=== PATIENT | female | born 1955 | race Caucasian/White ===

== ENCOUNTER 2017-05-18 21:55 | Observation (INO) | payer BC ==
[~2017-05-18] VITALS: Ht 172.7 cm; Wt 109.1 kg
[~2017-05-18 21:55] MED LIST: SYNT137T PO
[2017-05-18 21:59] VITALS: BP 161/112; PULSE 88; RESP 18; TEMP 97.3; O2SAT 98
[2017-05-18] MEDS ORDERED: ZANT150T2 PO (22:01)
[2017-05-18] MEDS ORDERED: ALLO100T PO (22:01)
[2017-05-18] MEDS ORDERED: ROCA0.5C PO (22:01)
[2017-05-18] MEDS ORDERED: METO25TA3 PO (22:01)
[2017-05-18] MEDS ORDERED: BETH10TA2 PO (22:01)
[2017-05-18] MEDS ORDERED: AMLO5 PO (22:01)
[2017-05-18] MEDS ORDERED: CYAN1TAB24 (22:01)
[2017-05-18] MEDS ORDERED: SYNT175T PO (22:01)
--- NOTE | 2017-05-18 22:11 | PD ---
HPI Chief Complaint: Chest Pain Time Seen by Provider: 21:59 Travel History International Travel<30 days: No Contact w/Intl Traveler<30days: No Traveled to known affect area: No History of Present Illness HPI 61-year-old female with history of hypertension, here for evaluation of chest pain. Patient reports that she has been having elevated blood pressure for the last month and was seen by emergency veterinary assistant Dr. Alvarado 3 days ago and was started on a new blood pressure medication. About 45 minutes prior to arrival while sitting the patient began experiencing severe chest discomfort. She described the discomfort as pressure, severe, has since lessened and is now a 6 out of 10 , is substernal and radiates to her left chest. She became slightly short of breath and diaphoretic at onset of symptoms. She denies any known history of cardiac disease. Both her mother and her father had history of cardiac disease with her father dying at the age of 49 of an VT. She is a nonsmoker. No paresthesias or motor deficits. No history of DVT or PE. No fevers or recent illness. PFSH Past Medical History ?: Not Social History Tobacco Use: No Allergies-Medications (Allergen,Severity, Reaction): Coded Allergies: NSAIDS (Non-Steroidal Anti-Inflamma (Verified Allergy, Severe, 05/18/17) Sulfa (Sulfonamide Antibiotics) (Unverified Allergy, Severe, Anaphylaxis, 05/18/17) shellfish derived (Verified Allergy, Severe, 05/18/17) Reported Meds & Prescriptions Reported Meds & Active Scripts Active Reported B12 (Cyanocobalamin) 1,000 Mcg Tab Rocaltrol (Calcitriol) 0.5 Mcg Cap 0.5 Mcg PO DAILY Zantac (Ranitidine HCl) 150 Mg Tab 150 Mg PO BID Bethanechol 10 Mg Tab 10 Mg PO Q8HR Norvasc (Amlodipine Besylate) 5 Mg Tab 5 Mg PO DAILY Allopurinol 100 Mg Tab 100 Mg PO DAILY Metoprolol Tartrate 25 Mg Tab 25 Mg PO BID Synthroid (Levothyroxine Sodium) 175 Mcg Tab 175 Mcg PO DAILY Review of Systems Except as stated in HPI: all other systems reviewed are Neg Physical Exam Narrative GENERAL: Well-developed, well-nourished, no apparent distress. SKIN: Focused skin assessment warm/dry. No rash. No pallor. HEAD: Atraumatic. Normocephalic. EYES: Pupils equal and round. No scleral icterus. No injection or drainage. ENT: No nasal bleeding or discharge. Mucous membranes pink and moist. NECK: Trachea midline. No JVD. CARDIOVASCULAR: Regular rate and rhythm. Distal pulses brisk and equal bilaterally. RESPIRATORY: No accessory muscle use. Clear to auscultation. Breath sounds equal bilaterally. GASTROINTESTINAL: Abdomen soft, non-tender, nondistended. MUSCULOSKELETAL: No obvious deformities. No clubbing. No cyanosis. No edema. NEUROLOGICAL: Awake and alert. No obvious cranial nerve deficits. Motor grossly within normal limits. Normal speech. PSYCHIATRIC: Appropriate mood and affect; insight and judgment normal. Data Data Last Documented VS Vital Signs Date Time Temp Pulse Resp B/P (MAP) Pulse Ox O2 Delivery O2 Flow Rate FiO2 05/18/17 22:43 18 05/18/17 22:31 93 140/87 (104) 131/81 (98) 05/18/17 22:28 97 Room Air 05/18/17 21:59 97.3 Orders Orders Electrocardiogram (05/18/17 22:03) Ckmb (Isoenzyme) Profile (05/18/17 22:03) Complete Blood Count With Diff (05/18/17 22:03) Comprehensive Metabolic Panel (05/18/17 22:03) Magnesium (Mg) (05/18/17 22:03) Prothrombin Time / Inr (Pt) (05/18/17 22:03) Act Partial Throm Time (Ptt) (05/18/17 22:03) Troponin I (05/18/17 22:03) Chest, Single Ap (05/18/17 22:03) Ecg Monitoring (05/18/17 22:03) Bilateral Bp Monitoring (05/18/17 22:03) Iv Access Insert/Monitor (05/18/17 22:03) Oximetry (05/18/17 22:03) Oxygen Administration (05/18/17 22:03) Aspirin Chew (Aspirin Chew) (05/18/17 22:15) Sodium Chloride 0.9% Flush (Ns Flush) (05/18/17 22:15) Nitroglycerin Sl (Nitrostat Sl) (05/18/17 22:15) Sodium Chlor 0.9% 1000 Ml Inj (Ns 1000 M (05/18/17 23:00) Admit Order (Ed Use Only) (05/18/17 23:33) Labs Laboratory Tests Test 05/18/17 22:11 White Blood Count 7.6 TH/MM3 Red Blood Count 4.20 MIL/MM3 Hemoglobin 12.4 GM/DL Hematocrit 37.6 % Mean Corpuscular Volume 89.6 FL Mean Corpuscular Hemoglobin 29.5 PG Mean Corpuscular Hemoglobin Concent 32.9 % Red Cell Distribution Width 12.8 % Platelet Count 208 TH/MM3 Mean Platelet Volume 9.6 FL Neutrophils (%) (Auto) 61.5 % Lymphocytes (%) (Auto) 28.5 % Monocytes (%) (Auto) 7.0 % Eosinophils (%) (Auto) 2.3 % Basophils (%) (Auto) 0.7 % Neutrophils # (Auto) 4.6 TH/MM3 Lymphocytes # (Auto) 2.2 TH/MM3 Monocytes # (Auto) 0.5 TH/MM3 Eosinophils # (Auto) 0.2 TH/MM3 Basophils # (Auto) 0.1 TH/MM3 CBC Comment DIFF FINAL Differential Comment Prothrombin Time 10.7 SEC Prothromb Time International Ratio 1.0 RATIO Activated Partial Thromboplast Time 25.0 SEC Blood Urea Nitrogen 38 MG/DL Creatinine 1.60 MG/DL Random Glucose 126 MG/DL Total Protein 7.9 GM/DL Albumin 3.7 GM/DL Calcium Level 11.5 MG/DL Magnesium Level 2.4 MG/DL Alkaline Phosphatase 99 U/L Aspartate Amino Transf (AST/SGOT) 18 U/L Alanine Aminotransferase (ALT/SGPT) 28 U/L Total Bilirubin 0.3 MG/DL Sodium Level 134 MEQ/L Potassium Level 3.8 MEQ/L Chloride Level 100 MEQ/L Carbon Dioxide Level 26.5 MEQ/L Anion Gap 8 MEQ/L Estimat Glomerular Filtration Rate 33 ML/MIN Total Creatine Kinase 91 U/L Troponin I LESS THAN 0.02 NG/ML MDM Medical Decision Making Medical Screen Exam Complete: Yes Emergency Medical Condition: Yes Interpretation(s) EKG: Sinus, rate 85, leftward axis, normal intervals, LVH, low QRS voltages in precordial leads, no acute ischemic abnormality. Differential Diagnosis ACS, pneumothorax, pericarditis, PE, pneumonia, hypertensive crisis Narrative Course Initial vital signs show heart rate 88, blood pressure 161/112, pulse ox 98% on room air, oral temp 97.3F. Blood pressure improved to 140/87 after 3 sublingual nitroglycerin. CBC is unremarkable. CMP is remarkable for BUN 38, creatinine 1.6, GFR 33, calcium 11.5. Chest x-ray: FINDINGS: Mild nodular prominence of the right hilum. Lungs are otherwise symmetric and unremarkable. No evidence of effusion. Heart size is satisfactory for technique and projection. Patient was given a full aspirin and 3 sublingual nitroglycerin. On reassessment she reports that her pain has resolved. She was made aware of all findings. She reports history of slight renal insufficiency as well as parathyroidectomy and is on calcitriol. She will be admitted for further chest pain workup. She is amenable to this plan. Case discussed with hospitalist Dr. Younger who will admit the patient to her service. Diagnosis Primary Impression: Chest pain Qualified Codes: R07.9 - Chest pain, unspecified Additional Impressions: Hypercalcemia Pulmonary nodule Renal insufficiency Admitting Information Admitting Physician Requests: Observation Troy Ribeiro MD May 18, 2017 22:11
[2017-05-18] MEDS ORDERED: SODIUM CHLORIDE 0.9% FLUSH 10 ML FLUSH IVF PRN (22:15)
[2017-05-18] MEDS ORDERED: ASPIRIN 81 MG CHEW TAB PO ONE (22:15)
[2017-05-18] MEDS: NITROGLYCERIN 0.4 MG SL 25 TABS/BTL SL SCH ×3 (22:16→22:38)
[2017-05-18 22:18] VITALS: O2SAT 97
[2017-05-18 22:19] LABS: AUTOMATED NEUTROPHIL # 4.6 TH/MM3 (1.8-7.7); BASOPHIL # 0.1 TH/MM3 (0-0.2); BASOPHIL % 0.7 % (0.0-2.0); EOSINOPHIL # 0.2 TH/MM3 (0-0.4); EOSINOPHIL % 2.3 % (0.0-4.0); HEMATOCRIT 37.6 % (35.0-46.0); HEMO FLAGS DIFF FINAL; LYMPH % 28.5 % (9.0-44.0); LYMPHOCYTE # 2.2 TH/MM3 (1.0-4.8); MEAN CELL VOLUME 89.6 FL (80.0-100.0); MEAN CORPUSCULAR HEMOGLOBIN 29.5 PG (27.0-34.0); MEAN CORPUSCULAR HGB CONC 32.9 % (32.0-36.0); NEUT % 61.5 % (16.0-70.0); PLATELET COUNT 208 TH/MM3 (150-450); RED CELL DISTRIBUTION WIDTH 12.8 % (11.6-17.2); WHITE BLOOD COUNT 7.6 TH/MM3 (4.0-11.0)
[2017-05-18 22:28] VITALS: BP 140/87; PULSE 93; RESP 18; O2SAT 97
[2017-05-18 22:31] VITALS: BP_SYST 131; BP_SYST 140; BP_DIAS 81; BP_DIAS 87; PULSE 93
[2017-05-18 22:33] LABS: CHLORIDE 100 MEQ/L (98-107); POTASSIUM 3.8 MEQ/L (3.5-5.1); SODIUM (NA) 134 MEQ/L (136-145)
[2017-05-18 22:36] LABS: ANION GAP 8 MEQ/L (5-15); BICARBONATE 26.5 MEQ/L (21.0-32.0); MAGNESIUM 2.4 MG/DL (1.5-2.5)
[2017-05-18 22:37] LABS: BLOOD UREA NITROGEN 38 MG/DL (7-18)
--- NOTE | 2017-05-18 22:38 | RADRPT ---
EXAM DATE/TIME: 05/18/2017 22:13 [facility] COMPARISON: No previous studies available for comparison. INDICATIONS : Chest pain. MEDICAL HISTORY : Hypertension. SURGICAL HISTORY : None. ENCOUNTER: Initial ACUITY: 1 day PAIN SCORE: 6/10 LOCATION: chest substernal. FINDINGS: Mild nodular prominence of the right hilum. Lungs are otherwise symmetric and unremarkable. No eviden ce of effusion. Heart size is satisfactory for technique and projection. CONCLUSION: Abnormal chest appearance. Adrian Monsalve MD on May 18, 2017 at 22:36 Board Certified Radiologist. This report was verified electronically.
[2017-05-18 22:39] LABS: ALT (GPT) 28 U/L (10-53)
[2017-05-18 22:40] LABS: AST (GOT) 18 U/L (15-37); GLOMERULAR FILTRATION RATE 33 ML/MIN (>89); PROTHROMBIN TIME - PATIENT 10.7 SEC (9.8-11.6)
[2017-05-18 22:41] LABS: TOTAL BILIRUBIN ADULT 0.3 MG/DL (0.2-1.0)
[2017-05-18 22:42] LABS: ALKALINE PHOSPHATASE 99 U/L (45-117)
[2017-05-18 22:50] LABS: CREATINE KINASE 91 U/L (26-192)
[2017-05-18] MEDS ORDERED: SODIUM CHLOR 0.9% 1000 ML INJ 1,000 ML IV ONE (23:00)
[2017-05-18] MEDS ORDERED: NALOXONE HCL 0.4 MG/ML AMP IV PUSH PRN (23:45)
[2017-05-18] MEDS ORDERED: SODIUM CHLORIDE 0.9% FLUSH 10 ML FLUSH IV FLUSH PRN (23:45)
[2017-05-19 00:29] VITALS: BP 147/74
[2017-05-19 01:00] VITALS: BP 161/83; PULSE 73; RESP 20; TEMP 96; O2SAT 94
[2017-05-19] MEDS ORDERED: ACETAMINOPHEN 325 MG TAB PO PRN (01:15)
[2017-05-19 04:37] LABS: BASOPHIL % 0.4 % (0.0-2.0); EOSINOPHIL # 0.2 TH/MM3 (0-0.4); EOSINOPHIL % 2.4 % (0.0-4.0); HEMATOCRIT 34.2 % (35.0-46.0); HEMO FLAGS DIFF FINAL; LYMPHOCYTE # 1.9 TH/MM3 (1.0-4.8); MEAN CELL VOLUME 89.3 FL (80.0-100.0); MEAN CORPUSCULAR HEMOGLOBIN 30.5 PG (27.0-34.0); MEAN CORPUSCULAR HGB CONC 34.2 % (32.0-36.0); NEUT % 60.2 % (16.0-70.0); PLATELET COUNT 165 TH/MM3 (150-450); RED BLOOD COUNT 3.83 MIL/MM3 (4.00-5.30); RED CELL DISTRIBUTION WIDTH 12.6 % (11.6-17.2); WHITE BLOOD COUNT 6.6 TH/MM3 (4.0-11.0)
[2017-05-19 04:43] LABS: CHLORIDE 105 MEQ/L (98-107); SODIUM (NA) 138 MEQ/L (136-145)
[2017-05-19 05:09] LABS: ANION GAP 6 MEQ/L (5-15); BICARBONATE 26.9 MEQ/L (21.0-32.0); BLOOD UREA NITROGEN 35 MG/DL (7-18); GLOMERULAR FILTRATION RATE 35 ML/MIN (>89)
[2017-05-19 06:00] LABS: CREATINE KINASE 77 U/L (26-192)
[2017-05-19 08:00] VITALS: BP 135/62; PULSE 64; PULSE 72; RESP 17; TEMP 97.5; O2SAT 99
[2017-05-19] MEDS ORDERED: SODIUM CHLORIDE 0.9% FLUSH 10 ML FLUSH IV FLUSH SCH (09:00)
[2017-05-19] MEDS ORDERED: ASPIRIN EC 81 MG TABEC PO SCH (09:15)
[2017-05-19] MEDS ORDERED: DILTIAZEM-CD 240 MG CAP ER PO SCH (10:29)
[2017-05-19] MEDS ORDERED: CARVEDILOL 12.5 MG TAB PO SCH (10:29)
[2017-05-19] MEDS ORDERED: ACETAMINOPHEN/HYDROcodone 325 MG/5 MG TAB PO PRN (10:30)
[2017-05-19 10:44] LABS: CREATINE KINASE 72 U/L (26-192)
--- NOTE | 2017-05-19 11:50 | ECHRPT ---
Indication: Chest Pain CONCLUSIONS There is trace tricuspid valve regurgitation. The estimated pulmonary arterial pressure is 30 mmHg. The pulmonary valve is not well visualized. BP: 135 / 62 HR: 86 Rhythm: Sinus MEASUREMENTS (Male / Female) Normal Values Technical Quality:Fair 2D ECHO LV Diastolic Diameter PLAX 3.9 cm 4.2 - 5.9 / 3.9 - 5.3 cm LV Systolic Diameter PLAX 2.6 cm IVS Diastolic Thickness 1.0 cm 0.6 - 1.0 / 0.6 - 0.9 cm LVPW Diastolic Thickness 1.0 cm 0.6 - 1.0 / 0.6 - 0.9 cm LV Relative Wall Thickness 0.5 RV Internal Dim ED PLAX 2.6 cm LVOT Diameter 2.2 cm LA Systolic Diameter LX 4.0 cm 3.0 - 4.0 / 2.7 - 3.8 cm M-MODE Aortic Root Diameter MM 3.0 cm LA Systolic Diameter MM 3.3 cm LA Ao Ratio MM 1.1 AV Cusp Separation MM 1.9 cm DOPPLER AV Peak Velocity 115.0 cm/s AV Peak Gradient 5.3 mmHg LVOT Peak Velocity 82.9 cm/s LVOT Peak Gradient 2.7 mmHg AV Area Cont Eq pk 2.7 cm MV Area PHT 4.8 cm Mitral E Point Velocity 49.4 cm/s Mitral A Point Velocity 72.6 cm/s Mitral E to A Ratio 0.7 TR Peak Velocity 223.0 cm/s TR Peak Gradient 19.9 mmHg Right Atrial Pressure 10.0 mmHg Pulmonary Artery Systolic Pressu 29.9 mmHg Right Ventricular Systolic Press 29.9 mmHg PV Peak Velocity 89.6 cm/s PV Peak Gradient 3.2 mmHg FINDINGS LEFT VENTRICLE Normal left ventricular size and wall thickness. The left ventricular systolic function is normal wi th an estimated ejection fraction in the range of 60-65%. Left ventricular diastolic function parameters a re normal. RIGHT VENTRICLE Normal right ventricular size and systolic function. LEFT ATRIUM The left atrial size is normal. RIGHT ATRIUM The right atrial size is normal. ATRIAL SEPTUM Normal atrial septal thickness without atrial level shunting by limited color doppler interrogation. AORTA The aortic root and proximal ascending aorta are normal in size on limited imaging. MITRAL VALVE Structurally normal mitral valve. No mitral valve stenosis or regurgitation. AORTIC VALVE Trileaflet aortic valve. No aortic valve stenosis or regurgitation. TRICUSPID VALVE Structurally normal tricuspid valve. There is trace tricuspid valve regurgitation. The estimated pulmonary arterial pressure is 30 mmHg. PULMONARY VALVE The pulmonary valve is not well visualized. VESSELS The inferior vena cava is normal in size. PERICARDIUM No pericardial effusion. John Nelson MD, FACC, [facility] [place] (Electronically Signed) Final Date:19 May 2017 11:48
[2017-05-19 12:00] VITALS: BP 132/75; PULSE 69; RESP 19; TEMP 98; O2SAT 98
--- NOTE | 2017-05-19 12:04 | HHI.HP ---
[facility] Primary Care Physician Yolanda Naik M.D. Admission Diagnosis chest pain, hypercalcemia, pulmonary nodule Diagnoses: (1) Chest pain Diagnosis: Principal (2) Accelerated hypertension Diagnosis: Principal (3) Chronic kidney disease, stage 3 Diagnosis: Secondary Chief Complaint: Chest pain Travel History International Travel<30 Days: No Contact w/Intl Traveler <30 Da: No Traveled to Known Affected Are: No History of Present Illness Written by Michael Arthur, acting as scribe for Dr. Rai on 05/19/17 at 11:51. 7-year-old female with known history of hypertension, hypothyroidism, chronic kidney disease stage III, gastroesophageal reflux, gout who presented to hospital because of chest discomfort. Patient states that she usually goes to Dr. Naik on a regular basis. Patient blood pressure had been running high so she was referred back to Dr. Alvarado for recommendations. Patient was under care of Dr. Alvarado in and her blood pressure medications were being adjusted. She had been changed to metoprolol, amlodipine. However blood pressures were running in the high 130s/90s. Patient doing well until yesterday when she was having some significant lightheadedness and dizziness so she checked her blood pressure and her diastolic pressure was greater than 100. She took her dose of amlodipine without any improvement. Then she started developing severe viselike chest pain 8/10 on a pain scale at approximately 9 PM last night. She took some aspirin without any improvement. She indicates the pain did not go into her neck or shoulders. The pain did go under her left breast. She had some nausea without vomiting. She had associated diaphoresis. Shortness of breath. The patient came to emergency department for evaluation and was given nitroglycerin with complete resolution of her pain. Patient had workup done without any significant abnormalities. It was recommended that the patient be observed for further evaluation and management for her chest discomfort. Review of Systems Respiratory: COMPLAINS OF: Shortness of breath Cardiovascular: COMPLAINS OF: Chest pain, Lower Extremity Edema (patient has chronic intermittent left lower extremity edema secondary to saphenous vein surgery) Except as stated in HPI: all other systems reviewed are Neg Past Family Social History Past Medical History Hypertension Gastroesophageal reflux Gout Hypothyroidism Past Surgical History Cholecystectomy Thyroidectomy Parathyroidectomy Partial hysterectomy Reported Medications Reported Meds & Active Scripts Active Reported B12 (Cyanocobalamin) 1,000 Mcg Tab Rocaltrol (Calcitriol) 0.5 Mcg Cap 0.5 Mcg PO DAILY Zantac (Ranitidine HCl) 150 Mg Tab 150 Mg PO BID Bethanechol 10 Mg Tab 10 Mg PO Q8HR Norvasc (Amlodipine Besylate) 5 Mg Tab 5 Mg PO DAILY Allopurinol 100 Mg Tab 100 Mg PO DAILY Metoprolol Tartrate 25 Mg Tab 25 Mg PO BID Synthroid (Levothyroxine Sodium) 175 Mcg Tab 175 Mcg PO DAILY Allergies: Coded Allergies: NSAIDS (Non-Steroidal Anti-Inflamma (Verified Allergy, Severe, 05/18/17) Sulfa (Sulfonamide Antibiotics) (Unverified Allergy, Severe, Anaphylaxis, 05/18/17) shellfish derived (Verified Allergy, Severe, 05/18/17) Family History Reviewed and significant for father at age 49 from early onset heart disease. Social History Patient states that she smoked for a couple years when she was a teenager, she denies any alcohol or illicit drugs Physical Exam Vital Signs Vital Signs Date Time Temp Pulse Resp B/P (MAP) Pulse Ox O2 Delivery O2 Flow Rate FiO2 05/19/17 08:00 97.5 72 17 135/62 (86) 99 05/19/17 08:00 64 05/19/17 02:16 20 05/19/17 01:00 96.0 73 20 161/83 (109) 94 05/19/17 00:29 76 18 147/74 (98) 98 05/18/17 22:43 18 05/18/17 22:31 93 140/87 (104) 131/81 (98) 05/18/17 22:28 93 18 140/87 (104) 97 Room Air 05/18/17 22:18 97 Room Air 05/18/17 22:18 97 Room Air 05/18/17 22:04 88 18 98 Room Air 05/18/17 21:59 97.3 88 18 161/112 (128) 98 Physical Exam GENERAL: Well-developed, well-nourished, in no acute distress. alert and orientated HEENT: Head is normocephalic without any lesions or masses noted. Facial features are symmetric. Eyes: Pupils equal round reactive to light. Extraocular muscles are intact. Conjunctivae were clear. Oropharyngeal: Pharynx without any erythema edema. Tongue is midline without deviation. Buccal mucosa is moist without any masses or lesions NECK: Supple without any masses. Trachea midline no deviation. No JVD, no bruits are appreciated CARDIAC: Regular rhythm, regular rate. S1/S2 are heard. No murmurs gallops or rubs. LUNGS: Clear to auscultation bilaterally. No wheeze, rhonchi or rales. No use of accessory muscles on inspiration or expiration. ABDOMEN: Soft, nontender. Nondistended. Bowel sounds heard in all 4 quadrants. No organomegaly or masses. Negative rebound, negative guarding EXTREMITIES: No edema, pulses are equal bilaterally. No cyanosis or clubbing NEUROLOGY: Mood and affect appear appropriate. Cranial nerves II through XII grossly intact. Muscle strength 5/5 in upper and lower extremities bilaterally. Deep tendon reflexes are 2+ in upper and lower extremities bilaterally. Laboratory Laboratory Tests Test 05/18/17 22:11 05/19/17 04:25 05/19/17 09:40 White Blood Count 7.6 6.6 Red Blood Count 4.20 3.83 Hemoglobin 12.4 11.7 Hematocrit 37.6 34.2 Mean Corpuscular Volume 89.6 89.3 Mean Corpuscular Hemoglobin 29.5 30.5 Mean Corpuscular Hemoglobin Concent 32.9 34.2 Red Cell Distribution Width 12.8 12.6 Platelet Count 208 165 Mean Platelet Volume 9.6 9.4 Neutrophils (%) (Auto) 61.5 60.2 Lymphocytes (%) (Auto) 28.5 29.0 Monocytes (%) (Auto) 7.0 8.0 Eosinophils (%) (Auto) 2.3 2.4 Basophils (%) (Auto) 0.7 0.4 Neutrophils # (Auto) 4.6 4.0 Lymphocytes # (Auto) 2.2 1.9 Monocytes # (Auto) 0.5 0.5 Eosinophils # (Auto) 0.2 0.2 Basophils # (Auto) 0.1 0.0 CBC Comment DIFF FINAL DIFF FINAL Differential Comment Prothrombin Time 10.7 Prothromb Time International Ratio 1.0 Activated Partial Thromboplast Time 25.0 Blood Urea Nitrogen 38 35 Creatinine 1.60 1.50 Random Glucose 126 98 Total Protein 7.9 Albumin 3.7 Calcium Level 11.5 10.2 Magnesium Level 2.4 Alkaline Phosphatase 99 Aspartate Amino Transf (AST/SGOT) 18 Alanine Aminotransferase (ALT/SGPT) 28 Total Bilirubin 0.3 Sodium Level 134 138 Potassium Level 3.8 4.0 Chloride Level 100 105 Carbon Dioxide Level 26.5 26.9 Anion Gap 8 6 Estimat Glomerular Filtration Rate 33 35 Total Creatine Kinase 91 77 72 Troponin I LESS THAN 0.02 LESS THAN 0.02 LESS THAN 0.02 D-Dimer Quantitative (PE/DVT) 0.26 Result Diagram: 05/19/1742405/19/17424 Imaging Last Impressions Chest X-Ray 05/18/172202 Signed Impressions: Service Date/Time: Thursday, May 18, 2017 22:13 - CONCLUSION: Abnormal chest appearance. MD Jo Ferrer VTE Risk Assessment Jo VTE Risk Assessment: No/Low Risk (score <= 1) Caprini Risk Assessment Model Point Value = 1 Point Value = 2 Point Value = 3 Point Value = 5 Age 41-60 Minor surgery BMI > 25 kg/m2 Swollen legs Varicose veins or History of unexplained or recurrent spontaneous Oral contraceptives or hormone replacement Sepsis (< 1 month) Serious lung disease, including pneumonia (< 1 month) Abnormal pulmonary function Acute myocardial infarction Congestive heart failure (< 1 month) History of inflammatory bowel disease Medical patient at bed rest Age 61-74 Arthroscopic surgery Major open surgery (> 45 min) Laparoscopic surgery (> 45 min) Malignancy Confined to bed (> 72 hours) Immobilizing plaster cast Central venous access Age >= 75 History of VTE Family history of VTE Factor V Leiden Prothrombin [id number] Lupus anticoagulant Anticardiolipin antibodies Elevated serum homocysteine Heparin-induced thrombocytopenia Other congenital or acquired thrombophilia Stroke (< 1 month) Elective arthroplasty Hip, pelvis, or leg fracture Acute spinal cord injury (< 1 month) Prophylaxis Regimen Total Risk Factor Score Risk Level Prophylaxis Regimen 0-1 Low Early ambulation 2 Moderate Order ONE of the following: *Sequential Compression Device (SCD) *Heparin 5000 units SQ BID 3-4 Higher Order ONE of the following medications: *Heparin 5000 units SQ TID *Enoxaparin/Lovenox 40 mg SQ daily (WT < 150 kg, CrCl > 30 mL/min) *Enoxaparin/Lovenox 30 mg SQ daily (WT < 150 kg, CrCl > 10-29 mL/min) *Enoxaparin/Lovenox 30 mg SQ BID (WT < 150 kg, CrCl > 30 mL/min) AND/OR *Sequential Compression Device (SCD) 5 or more Highest Order ONE of the following medications: *Heparin 5000 units SQ TID (Preferred with Epidurals) *Enoxaparin/Lovenox 40 mg SQ daily (WT < 150 kg, CrCl > 30 mL/min) *Enoxaparin/Lovenox 30 mg SQ daily (WT < 150 kg, CrCl > 10-29 mL/min) *Enoxaparin/Lovenox 30 mg SQ BID (WT < 150 kg, CrCl > 30 mL/min) AND *Sequential Compression Device (SCD) Assessment and Plan Assessment and Plan Chest pain Patient has have increased risk factors to include age, hypertension, early- onset family history of heart disease Patient has been ruled out for acute coronary event with serial cardiac enzymes which are normal, serial EKGs do not show any changes Patient was continued on aspirin, Dr. Alvarado, has seen the patient and recommended further workup to rule out ischemia, pulmonary emboli D-dimer is negative Echocardiogram has been requested Pursue nuclear stress test rule out underlying ischemia Accelerated hypertension Dr. Alvarado has resumed her blood pressure medication to include Coreg 12.5 mg twice daily, Cardizem 240 mg daily Abnormal chest x-ray with mild nodular prominence of right hilum Recommending short term outpatient follow-up with her primary medical doctor Unable to perform CTA of the chest with contrast due to chronic kidney disease Chronic kidney disease stage III Continue monitor renal functions Avoid nephrotoxins DVT prevention Sequential compression devices Discharge disposition Discharge home in stable condition if nuclear stress test is negative Activity: Ad nelia. Diet: Healthy heart diet Medications per medication reconciliation Follow-up primary medical doctor in one week, choral teacher in 2 weeks This note was transcribed by scribe. Howell, Dr. Velma Rai personally performed the history, physical exam, and medical decision making; and confirmed the accuracy of the information in the transcribed note. Authenticated by Dr. Velma Rai on 05/19/17 at 12:05. Problem Qualifiers (1) Chest pain: Qualified Codes: R07.9 - Chest pain, unspecified Michael Arthur May 19, 2017 12:04 Velma Rai MD May 19, 2017 12:05
[2017-05-19] MEDS ORDERED: REGADENOSON INJ 0.4 MG/5 ML SYR IV ONE (13:26)
--- NOTE | 2017-05-19 15:25 | RADRPT ---
EXAM DATE/TIME: 05/19/2017 13:12 [facility] COMPARISON: No previous studies available for comparison. INDICATIONS : Left sided chest pain for one day. Angina. DOSE: 30.0 mCi Tc99m Myoview at stress. 10.0 mCi Tc99m Myoview at rest. 0.4 mg Lexiscan STRESS SYMPTOMS: Shortness of breath. EJECTION FRACTION: 58% MEDICAL HISTORY : Hypertension. SURGICAL HISTORY : Thyroidectomy. Hysterectomy. Cholecystectomy. ENCOUNTER: Initial ACUITY: 1 day PAIN SCALE: 6/10 LOCATION: Left chest TECHNIQUE: The patient underwent pharmacologic stress with infusion of prescribed dose. Continuous ECG tracing was monitored during stress. Gated SPECT imaging was performed after stress and conventional SPECT i maging was performed at rest. The examination was performed on a SPECT/CT scanner, both attenuation and non-corrected datasets were reviewed. FINDINGS: DISTRIBUTION: The maximum perfused segment at stress is in the anterolateral wall. PERFUSION STUDY: The pattern of perfusion at stress is within normal limits, with regional variations of perfusion wit hin 30%. No evidence of redistribution. The summed stress score is 5. GATED STUDY: There is intact wall motion and thickening without hypokinetic or dyskinetic segments. CONCLUSION: 1. No evidence of stress-induced ischemia. 2. Intact wall motion with 58% ejection fraction. RISK CATEGORY: Low (<1% Annual Mortality Rate) Javid Arenas MD on May 19, 2017 at 15:22 Board Certified Radiologist. This report was verified electronically.
[2017-05-19] MEDS ORDERED: CARD240C6 PO (15:38)
[2017-05-19] MEDS ORDERED: CARV12.5 PO (15:38)
--- NOTE | 2017-05-19 15:38 | HHI.DCPOC ---
Discharge Care Plan Diagnosis: (1) Accelerated hypertension (2) Chest pain Goals to Promote Your Health * To prevent worsening of your condition and complications * To maintain your health at the optimal level Directions to Meet Your Goals Take your medications as prescribed Follow your dietary instruction Follow activity as directed Keep your appointments as scheduled Take your immunizations and boosters as scheduled If your symptoms worsen call your PCP, if no PCP go to Urgent Care Center or Emergency Room Smoking is Dangerous to Your Health. Avoid second hand smoke Call the 24-hour hour crisis hotline for domestic abuse at Michael Arthur May 19, 2017 15:38
[2017-05-19 16:00] VITALS: BP 128/72; PULSE 72; RESP 18; TEMP 97.8; O2SAT 97
--- NOTE | 2017-05-19 16:10 | EKG ---
Date Performed: 05/19/2017 Time Performed: 04:07:29 PTAGE: 61 years EKG: Sinus rhythm VOLTAGE CRITERIA FOR LVH ABNORMAL ECG Compared to prior tracing no significant change PREVIOUS TRACING : 05/18/2017 DOCTOR: John Nelson Interpretating Date/Time 05/19/2017 16:07:51
--- NOTE | 2017-05-19 16:10 | EKG ---
Date Performed: 05/18/2017 Time Performed: 21:59:04 PTAGE: 61 years EKG: Sinus rhythm LOW QRS VOLTAGE IN PRECORDIAL LEADS VOLTAGE CRITERIA FOR LVH ABNORMAL ECG NO PREVIOUS TRACING DOCTOR: John Nelson Interpretating Date/Time 05/19/2017 16:07:28
--- NOTE | 2017-05-19 16:54 | MB ---
cc: RODNEY RAI MD, HUMAYUN A. M.D. DATE OF CONSULTATION: 05/19/2017 REASON FOR CONSULTATION: Thank you Dr. Rai for asking us see this 61-year-old female who is well-known to me with a history of chronic kidney disease, hypertension, hypothyroidism, who had presented with chest discomfort. She has had a history of gastroparesis. She recently had her blood pressure medications changed because of interaction of one of them with erythromycin that was prescribed for her GE reflux. She states that the reflux has gotten better but her blood pressure has gotten out of control. She was noted to have high pressures and developed severe chest pain yesterday. Her D-dimer was negative which essentially excludes pulmonary embolism. The pain did go to the left chest. It was helped by nitroglycerin. PAST MEDICAL HISTORY: 1. GE reflux. 2. Hypertension. 3. Gout. 4. Hypothyroidism. 5. Thyroidectomy. 6. Cholecystectomy 7. Parathyroidectomy. 8. High calcium. 9. Partial hysterectomy. MEDICATIONS: 1. Calcitriol. 2. Zantac 3. Bethanechol. 4. Norvasc. 5. Allopurinol. 6. Metoprolol 7. Synthroid. ALLERGIES: NONSTEROIDAL ANTI-INFLAMMATORY DRUGS SULFA SHELL FISH. FAMILY HISTORY: Significant for father at the age of 49. SOCIAL HISTORY: She does not smoke, drink alcohol or use drugs. PHYSICAL EXAMINATION: This is a large lady, obese. VITAL SIGNS: Pulse 72, blood pressure 131/62. HEENT: Eyes show no xanthelasma. NECK: No JVD. CARDIOVASCULAR: Two heart sounds. No murmurs. CHEST: Clear. ABDOMEN: Soft. No hepatosplenomegaly. LEGS: No evidence of edema. NEUROLOGIC: Grossly intact. LABORATORY TESTS: White count was 6.6, hemoglobin 11.7, platelet count 165,000, creatinine 1.5. Chest x-ray showed abnormal chest appearance. ASSESSMENT AND PLAN: The patient has been excluded for acute coronary angiogram, serial enzymes. EKG showed no changes. D-Dimer is negative. Echo is currently pending. We are awaiting a nuclear stress test. If this is negative, will hold off on investigations. If it is positive, we may have to consider heart catheterization, ____ chronic kidney disease, however, this is very concerning. Thank you for asking us to see this very pleasant lady. If the stress test is negative, one could assume that she is having GE reflux as a cause of her acute chest pain. Shayy Alvarado MD, FRCP,[facility]/EZ /2:10 PM /4:06 PM
== END 2017-05-19 16:59 | disposition home or self-care (01) ==
LOC: PHED 21:55 → PHEDA 23:34 → PH3B 05-19 00:34
PROVIDERS: ADMIT Hospitalist; ATTEND Hospitalist
DX: R07.89 Other chest pain (principal); I12.9 Hypertensive chronic kidney disease with stage 1 through stage 4 chronic kidney disease, or unspecified chronic kidney disease; N18.3 Chronic kidney disease, stage 3 (moderate); E03.9 Hypothyroidism, unspecified; E83.52 Hypercalcemia; K21.9 Gastro-esophageal reflux disease without esophagitis; R91.8 Other nonspecific abnormal finding of lung field; R91.1 Solitary pulmonary nodule; K31.84 Gastroparesis; M10.9 Gout, unspecified; Z79.899 Other long term (current) drug therapy; Z87.891 Personal history of nicotine dependence; Z90.710 Acquired absence of both cervix and uterus; Z82.49 Family history of ischemic heart disease and other diseases of the circulatory system
CPT/HCPCS: 71010; 78452; 80048; 80053; 82550; 83735; 84484; 85025; 85379; 85610; 85730; 93005; 93017; 93306; 96360; 99285; A9502; G0378; J2785; J7030

== ENCOUNTER 2017-06-17 20:43 | Emergency (ER) | payer BC ==
[~2017-06-17 20:43] MED LIST changes: +ALLO100T PO; +BETH10TA2 PO; +CARD240C6 PO; +CARV12.5 PO; +CYAN1TAB24; +ROCA0.5C PO; -SYNT137T PO; +SYNT175T PO; +ZANT150T2 PO
[2017-06-17 20:44] VITALS: BP 179/86; PULSE 87; RESP 16; TEMP 98.6; O2SAT 97
[2017-06-17] MEDS ORDERED: predniSONE 20 MG TAB PO ONE (21:45)
--- NOTE | 2017-06-17 21:48 | PD ---
HPI Chief Complaint: ENT Complaint Time Seen by Provider: 21:39 Travel History International Travel<30 days: No Contact w/Intl Traveler<30days: No Traveled to known affect area: No History of Present Illness HPI Patient comes in complaining of burning irritation in her throat that began around the 1 o'clock today. Patient states she was cooking when this occurred. Patient states she feels her throat might be closing. Patient denies any change in sensation from initial onset. Denies anything making it better or worse. Denies any radiation of pain. She denies any fevers or known sick contacts. Denies any known new allergen exposures. PFSH Past Medical History Arthritis: Yes Heart Rhythm Problems: Yes Cardiovascular Problems: Yes Chest Pain: Yes Diminished Hearing: No Endocrine: Yes Gastrointestinal Disorders: Yes GERD: Yes Gout: Yes Genitourinary: Yes (STAGE 3 KIDNEY DISEASE) Headaches: Yes Hypertension: Yes Musculoskeletal: Yes Neurologic: Yes Immunizations Current: No Thyroid Disease: Yes (HYPOTHYROID) Past Surgical History Abdominal Surgery: Yes (GALLBLADDER) Cholecystectomy: Yes Gynecologic Surgery: Yes (HYSTERECTOMY) Hysterectomy: Yes (PARTIAL) Oral Surgery: Yes (PARA AND THYROIDECTOMY) Thoracic Surgery: Yes (BACK SURGERY) Other Surgery: Yes (PARATHYROIDECTOMY) Social History Alcohol Use: Yes (SOCIAL) Tobacco Use: No Substance Use: No Allergies-Medications (Allergen,Severity, Reaction): Coded Allergies: NSAIDS (Non-Steroidal Anti-Inflamma (Verified Allergy, Severe, 05/18/17) Sulfa (Sulfonamide Antibiotics) (Unverified Allergy, Severe, Anaphylaxis, 05/18/17) shellfish derived (Verified Allergy, Severe, 05/18/17) Reported Meds & Prescriptions Reported Meds & Active Scripts Active Prednisone 20 Mg Tab 20 Mg PO BID 3 Days Coreg (Carvedilol) 12.5 Mg Tab 12.5 Mg PO BID Cardizem CD 24 HR (Diltiazem CD 24 HR) 240 Mg Caper 240 Mg PO DAILY Reported B12 (Cyanocobalamin) 1,000 Mcg Tab Rocaltrol (Calcitriol) 0.5 Mcg Cap 0.5 Mcg PO DAILY Zantac (Ranitidine HCl) 150 Mg Tab 150 Mg PO BID Bethanechol 10 Mg Tab 10 Mg PO Q8HR Allopurinol 100 Mg Tab 100 Mg PO DAILY Synthroid (Levothyroxine Sodium) 175 Mcg Tab 175 Mcg PO DAILY Review of Systems Except as stated in HPI: all other systems reviewed are Neg Physical Exam Narrative GENERAL: Well-developed, overly nourished, in no acute distress, and non-ill appearing. SKIN: Focused skin assessment warm and dry. HEAD: Atraumatic. Normocephalic. EYES: Pupils equal and round. EOMI. No scleral icterus. No injection or drainage. ENT: No nasal bleeding or discharge. Mucous membranes pink and moist. Posterior pharynx nonerythematous without exudate. Uvula is midline. Patient is swallowing her own saliva and speaking in full sentences without difficulty. NECK: Trachea midline. No cervical lymphadenopathy. Supple. No nuclear rigidity. CARDIOVASCULAR: Regular rate and rhythm. No murmur appreciated. RESPIRATORY: No accessory muscle use. No respiratory distress. Clear to auscultation. Breath sounds equal bilaterally. MUSCULOSKELETAL: No obvious deformities. No clubbing. No cyanosis. No edema. Full range of motion. NEUROLOGICAL: Awake and alert. No obvious cranial nerve deficits. Motor grossly within normal limits. Normal speech. PSYCHIATRIC: Appropriate mood and affect; insight and judgment normal. Data Data Last Documented VS Vital Signs Date Time Temp Pulse Resp B/P (MAP) Pulse Ox O2 Delivery O2 Flow Rate FiO2 06/17/17 22:49 06/17/17 21:50 80 18 99 Room Air 06/17/17 20:44 98.6 Orders Orders Group A Rapid Strep Screen (06/17/17 21:39) Influenzae A/B Antigen (06/17/17 21:39) Prednisone (Deltasone) (06/17/17 21:45) Strep Culture (Group A) (06/17/17 21:46) Ed Discharge Order (06/17/17 22:33) MDM Medical Decision Making Medical Screen Exam Complete: Yes Emergency Medical Condition: Yes Differential Diagnosis Strep pharyngitis, viral pharyngitis, allergic reaction, influenza, retropharyngeal abscess Narrative Course Patient looks great, non-ill appearing. The patient is tolerating fluids and is well hydrated. Appears viral pharyngitis with viral symptom complex. No clinical evidence by history or evaluation to suspect meningitis and/or sepsis. There was no evidence to suggest peritonsillar abscess or retropharyngeal abscess. I discussed with the patient, diagnosis, plan of care and to follow up with the patients primary physician. The patient was instructed to return if the worsens in anyway, especially if not tolerating fluids, increased pain or swelling, difficulty swallowing or breathing, or as needed. The patient agreed with plan. Patient in no obvious distress upon re-evaluation. All pertinent laboratory result(s) discussed with patient/family. Patient was asked if they wanted to speak to my attending, which the patient did not wish to do at this time. Any questions/concerns in reference to patient diagnosis/condition discussed and clarified prior to patient's discharge. Reinforced sheer importance of close follow up with patient's primary physician or primary care clinic. Instructed patient to return to ED immediately, if symptoms return/worsen. Patient showed understanding of above instructions. Further instructions and recommendations were detailed in discharge paperwork. Patient ambulated without difficulty out of ED at discharge. Diagnosis Primary Impression: Pharyngitis Qualified Codes: J02.9 - Acute pharyngitis, unspecified Patient Instructions: General Instructions, Pharyngitis (ED) Additional Instructions: Follow-up with your primary care physician next week for reevaluation. Take all medication as prescribed. Return to the emergency department if symptoms get worse. Med/Other Pt SpecificInfo: Prescription(s) given Scripts Prednisone (Prednisone) 20 Mg Tab 20 MG PO BID for 3 Days, #6 TAB 0 Refills Prov: Troy Ribeiro MD 06/17/17 Disposition: 01 DISCHARGE HOME Condition: Stable Chavo Herrera Jun 17, 2017 21:48
[2017-06-17 21:50] VITALS: BP 158/76; PULSE 80; RESP 18; O2SAT 99
[2017-06-17] MEDS ORDERED: PRED20 PO (22:31)
--- NOTE | 2017-06-18 10:31 | EKG ---
Date Performed: 06/17/2017 Time Performed: 21:33:02 PTAGE: 61 years EKG: Sinus rhythm LOW QRS VOLTAGE IN PRECORDIAL LEADS MODERATE VOLTAGE CRITERIA FOR LVH, CONSIDER NORMAL VARIANT BRADLYDE LAURAINE ECG PREVIOUS TRACING : 05/19/2017 04.07 DOCTOR: Travis Tariq Interpretating Date/Time 06/18/2017 10:29:11
== END 2017-06-17 22:53 | disposition home or self-care (01) ==
LOC: NEPD 20:43
DX: J02.9 Acute pharyngitis, unspecified (principal); E03.9 Hypothyroidism, unspecified; I10 Essential (primary) hypertension; K21.9 Gastro-esophageal reflux disease without esophagitis; M10.9 Gout, unspecified
CPT/HCPCS: 87081; 87804; 87880; 93005; 99284; J7512